=== PATIENT | female | born 1980 | race Two or more races ===

== ENCOUNTER 2019-01-25 16:29 | Outpatient (CLI) | payer MEDICAID ==
[2019-01-25 17:07] LABS: APPEARANCE,URINE CLEAR; BILIRUBIN,URINE NEGATIVE (NEGATIVE); COLOR,URINE YELLOW; GLUCOSE, URINE NEGATIVE (NEGATIVE); KETONES,URINE NEGATIVE (NEGATIVE); LEUKOCYTE ESTERASE,URINE NEGATIVE (NEGATIVE); NITRITE,URINE NEGATIVE (NEGATIVE); PROTEIN,URINE NEGATIVE (NEGATIVE); URINE SPECIFIC GRAVITY 1.009; UROBILINOGEN,URINE NEGATIVE mg/dL (<2.0)
[2019-01-25 17:31] LABS: URINE AMPHETAMINES SCREEN NEGATIVE; URINE BARBITURATES SCREEN NEGATIVE; URINE BENZODIAZEPINES SCREEN NEGATIVE; URINE COCAINE SCREEN NEGATIVE; URINE MARIJUANA (THC) SCREEN NEGATIVE; URINE METHADONE SCREEN NEGATIVE; URINE PHENCYCLIDINE SCREEN NEGATIVE
== END 2019-01-25 17:30 | disposition home or self-care (01) ==
LOC: LC 16:29
PROVIDERS: ATTEND Obstetrics & Gynecology
PROC: 4A1HXCZ Monitoring of Products of Conception, Cardiac Rate, External Approach (ICD-10-PCS; principal; 2019-01-25)
DX: Z34.93 Encounter for supervision of normal pregnancy, unspecified, third trimester (principal); Z3A.41 41 weeks gestation of pregnancy
CPT/HCPCS: 59025; 80307; 81005

== ENCOUNTER 2019-01-28 10:30 | Inpatient (IN) | payer MEDICAID ==
--- NOTE | 2019-01-28 10:42 | Non Stress Test Report ---
Non Stress Test Datetime Report Generated by CPN: 01/28/2019 10:42 DEMOGRAPHIC EGA NST: 41.0 INDICATION Indication for Study (NST) Other: repeat from [facility] VITAL SIGNS Temperature - NST: 98.0 Pulse - NST: 65 RESP - NST: 15 NBPSYS NST: 98 NBPDIA NST: 53 MONITORING Monitor Explained: Monitor Explained; Test Explained; Patient Verbalized Understanding Time on Monitor: 01/25/2019 16:50 Time off Monitor: 01/25/2019 17:21 NST Duration: 31 NST INTERVENTIONS NST Interventions: PO Hydration Physician Notified NST: A Stafford CNM BABY A: [id number] BABY A Movement : Present Contraction Frequency : rare FHR Baseline : 135 Accelerations : 15X15 Decelerations : None Variability : Moderate 6-25bpm NST Review: Meets Criteria for Reactive NST NST Review and Verified By : BL ROULUND, RN NST Results: Reactive NST COMMENTS NST Comments: CNM on unit reviewing FHT strip NST REPORT Report Trigger: Send Report
[2019-01-28] MEDS ORDERED: RINGERS SOLUTION,LACTATED 1,000 ML IV PRN ×2 (11:34→11:36)
[2019-01-28] MEDS ORDERED: OXYTOCIN/NORMAL SALINE 20 UNIT/1,000 ML RTUINJ IV PRN (11:34)
[2019-01-28] MEDS ORDERED: RINGERS SOLUTION,LACTATED 300 ML IV ONE (11:34)
[2019-01-28] MEDS ORDERED: RINGERS SOLUTION,LACTATED 1,000 ML IV ONE (11:36)
--- NOTE | 2019-01-28 11:38 | Admission Physical ---
Datetime Report Generated by CPN: 01/28/2019 11:38 CURRENT ADMISSION Hx Assessment: The History has been Reviewed and is Current Chief Complaint: Scheduled Induction of Labor Indication for Induction: Post Dates Admit Impression : Postterm, Intrauterine ; Active Labor; Intact Membranes; Induction of Labor Admit Plan: Admit to Unit; Initiate Labor Induction Protocol ALLERGIES Medication Allergies: No (Annotations: Data stored by [facility] on behalf of user) Medication Allergies: No Known Allergies (01/28/2019) Latex: No Latex Allergies OBSTETRICAL HISTORY EDC: 01/18/2019 00:00 : 7 Para: 6 Term: 6 : 0 SAB: 0 IAB: 0 Ectopic: 0 Livin Cesareans: 0 VBACs: 0 Multiple Births: 0 Gestational Diabetes: No Rh Sensitization: No Incompetent Cervix: No MARCIA: No Infertility: No ART Treatment: No Uterine Anomaly: No IUGR: No Hx Previous C/S: No Macrosomia: No Hx Loss/Stillborn: No PIH: No Hx : No Placenta Previa/Abruption: No Depression/PP Depression: No PTL/PROM: No Post Hemorrhage: No Current Procedures: Ultrasound; NST Obstetrical History Comments: G-1-BOY, 40 WEEKS G-2-BOY, 40 WEEKS G-3-BOY, 40 WEEKS G-4- GIRL, 40 WEEKS, SEVERAL UTI'S G-5- GIRL, 40 WEEKS G-6- BOY, 37 WEEKS G-7- CURRENT, 41+ WEEKS; AMA H/O PRECIPITOUS ; 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 [id number] MEDICAL HISTORY Diabetes: No Blood Transfusion: No Pulmonary Disease (Asthma, TB): No Breast Disease: No Hypertension: No Dispute Resolution Specialist Surgery: No Heart Disease: No Hosp/Surgery: Yes Autoimmune Disorder: No Anesthetic Complications: No Kidney Disease: Yes Abnormal Pap Smear: No Neuro/Epilepsy: No Psychiatric Disorders: No Other Medical Diseases: Yes Hepatitis/Liver Disease: No Significant Family History: No Varicosities/Phlebitis: No Trauma/Violence : No Thyroid Dysfunction: No Medical History Comments: H/O UTI'S CHILDBIRTH X 6 FIBROID, ANEMIA INFECTIOUS HISTORY Gonorrhea: No Genital Herpes: No Chlamydia: No Tuberculosis: No Syphilis: No Hepatitis: No HIV/AIDS Exposure: No Rash or Viral Illness: No HPV: No PHYSICAL EXAM General: Normal HEENT: Deferred Neurologic: Normal Thyroid: Normal Heart: Normal Lungs: Normal Breast: Deferred Back: Normal Abdomen: Normal Genitourinary Exam: Normal Extremities: Normal DTRs: Normal Pelvic Type: Adequate Physical Exam Comments: pelvis proven 7 pounds Anti E, weak titer at 36 weeks, Hsb + anti E GBS neg AMA Hx precipitous 06-25 uterine fibroid 06-25 FETUS A EGA: 41.3 Monitoring: External US Admit Comment: IOL for post dates 41.1, does not want amniotomy, Cat 1 strip, will start Pitocin PLANS FOR LABOR AND DELIVERY Labor and Delivery: Plan Pain Management: None Feeding Preference: Breast Benefit of Breast Feed Discussed: Yes Circumcision: Yes INFORMED CONSENT Assignment: Rosa Guardado MD Signature: with User ID: Miguel Ángel : with User ID: Miguel [email or web address]
[2019-01-28] MEDS ORDERED: MISOPROSTOL 0.2 MG TABLET ONE (11:54)
[2019-01-28] MEDS ORDERED: LIDOCAINE 1% INJ-PF (10 MG/ML) 30 ML SDV ONE (11:54)
[2019-01-28] MEDS ORDERED: OXYTOCIN 10 UNIT/ML VIAL ONE (11:54)
[2019-01-28] MEDS ORDERED: OXYTOCIN/NORMAL SALINE 20 UNIT/1,000 ML RTUINJ ONE (11:54)
[2019-01-28 13:01] LABS: ABSOLUTE EOSINOPHILS # (AUTO) 0.1 10^3/uL (0.0-0.6); ABSOLUTE LYMPHOCYTES (AUTO) 1.6 10^3/uL (0.5-4.7); ABSOLUTE MONOCYTES (AUTO) 0.9 10^3/uL (0.1-1.4); ABSOLUTE NEUT (AUTO) 5.9 10^3/uL (1.7-8.2); BASOPHILS % (AUTO) 0.4 % (0-2); EOSINOPHILS % (AUTO) 1.2 % (0-6); HEMATOCRIT 37.9 % (36.0-47.0); HEMOGLOBIN 12.6 g/dL (12.0-15.5); LYMPHOCYTES % (AUTO) 18.9 % (13-45); MEAN CORPUSCULAR HEMOGLOBIN 28.6 pg (27.0-33.4); MEAN CORPUSCULAR HGB CONC 33.3 g/dL (32.0-36.0); MEAN CORPUSCULAR VOLUME 86 fl (80-97); MONOCYTES % (AUTO) 10.3 % (3-13); PLATELET COUNT 283 10^3/uL (150-450); RED CELL DISTRIBUTION WIDTH 15.4 % (11.5-14.0); SEGMENTED NEUTROPHILS % (AUTO) 69.2 % (42-78); TOTAL CELLS COUNTED % (AUTO) 100 %; WHITE BLOOD COUNT 8.6 10^3/uL (4.0-10.5)
[2019-01-28 13:11] LABS: APPEARANCE,URINE CLEAR; BILIRUBIN,URINE NEGATIVE (NEGATIVE); COLOR,URINE STRAW; GLUCOSE, URINE NEGATIVE (NEGATIVE); KETONES,URINE NEGATIVE (NEGATIVE); LEUKOCYTE ESTERASE,URINE NEGATIVE (NEGATIVE); NITRITE,URINE NEGATIVE (NEGATIVE); PROTEIN,URINE NEGATIVE (NEGATIVE); URINE SPECIFIC GRAVITY 1.004; UROBILINOGEN,URINE NEGATIVE mg/dL (<2.0)
[2019-01-28 13:19] LABS: URINE AMPHETAMINES SCREEN NEGATIVE; URINE BARBITURATES SCREEN NEGATIVE; URINE BENZODIAZEPINES SCREEN NEGATIVE; URINE COCAINE SCREEN NEGATIVE; URINE MARIJUANA (THC) SCREEN NEGATIVE; URINE METHADONE SCREEN NEGATIVE; URINE PHENCYCLIDINE SCREEN NEGATIVE
--- NOTE | 2019-01-28 16:47 | Delivery Summary ---
Del Sum A-C Datetime Report Generated by CPN: 01/28/2019 16:47 DELIVERY PERSONNEL DELIVERY PERSONNEL: [id number] Delivery Doctor:: Rosa Guardado MD Labor and Delivery Nurse:: earlene de anda Nursery Nurse:: taina lisa Nursery Nurse:: marco valentine Vegetable Farm Manager/HEAVY FORGING MACHINE OPERATOR: carolyne Vegetable Farm Manager/HEAVY FORGING MACHINE OPERATOR: Felisha Esposito, ST MATERNAL INFORMATION Delivery Anesthesia: None Medications After Delivery: Pitocin Drip 20 Units/1000ml NSS Estimated Blood Loss (ml): 150 Delivery QBL: 150 Maternal Complications: None LABOR SUMMARY EDC: 01/18/2019 00:00 No. Babies in Womb: 1 Attempted: No LABOR INFORMATION Reason for Induction: Post Dates Onset of Labor: 01/28/2019 15:18 Complete Dilatation: 01/28/2019 15:42 Oxytocin: Induction Group B Beta Strep: NEGATIVE Steroids Given: None Reason Steroids Not Administered: Not Applicable MEMBRANES Membranes Rupture Method: Spontaneous Rupture of Membranes: 01/28/2019 15:18 Length of Rupture (hr): 0.43 Amniotic Fluid Color: Light Meconium Amniotic Fluid Amount: Moderate Amniotic Fluid Odor: Normal STAGES OF LABOR Stage 1 hr: 0 Stage 1 min: 24 Stage 2 hr: 0 Stage 2 min: 2 Stage 3 hr: 0 Stage 3 min: 4 Total Time in Labor hr: 0 Total Time in Labor min: 30 VAGINAL DELIVERY Episiotomy: None Laceration #1: None Laceration Extension #1: N/A Laceration Repair: Not Applicable Sharps Count Correct: Yes CSECTION DELIVERY Primary Indication: N/A Secondary Indication: N/A BABY A INFORMATION Delivery Date/Time: 01/28/2019 15:44 Method of Delivery: Vaginal Born in Route : No : N/A Forceps: N/A Vacuum Extraction: N/A Shoulder Dystocia : No PRESENTATION/POSITION BABY A Presentation: Cephalic Cephalic Presentation: Vertex Vertex Position: Right Occipital Anterior Breech Presentation: N/A PLACENTA INFORMATION BABY A Placenta Delivery Time : 01/28/2019 15:48 Placenta Method of Delivery: Spontaneous Placenta Status: Delivered SCORES BABY A Heart Rate 1 min: >100 bpm Resp Effort 1 min: Good Cry Reflex Irritability 1 min: Cough or Sneeze or Pulls Away Muscle Tone 1 min: Active Motion Color 1 min: Blue/Pale Resuscitation Effort 1 min: Tactile Stimulation SCORE 1 MIN: 8 Heart Rate 5 min: >100 bpm Resp Effort 5 min: Good Cry Reflex Irritability 5 min: Cough or Sneeze or Pulls Away Muscle Tone 5 min: Active Motion Color 5 min: Body [place], Extremities Blue Resuscitation Effort 5 min: Tactile Stimulation SCORE 5 MIN: 9 INFANT INFORMATION BABY A Gestational Age at Delivery: 41.0 Gestational Status: Late Term- 41- 41.6 Weeks Outcome : Liveborn Infant Condition : Stable Sex: Male IDENTIFICATION BABY A Verification Date/Time: 01/28/2019 16:19 ID Band Number: [id number] Mother's Name Verified: Yes Infant RN Verifying Infant: squinn Additional Verifying Personnel: [email or web address] WEIGHT/LENGTH BABY A Infant Birthweight (gm): 3649 Infant Weight (lb): 8 Infant Weight (oz): 1 Infant Length (in): 21.50 Length (cm): 54.61 CORD INFORMATION BABY A No. Cord Vessels: 3 Nuchal Cord : N/A Cord Blood Taken: Yes-For Storage (Mom's Blood type +) ASSESSMENT BABY A Skin to Skin: Yes (Annotations: Data stored by CPN on behalf of user) SIGNATURES Signature: with User ID: [email or web address]
[2019-01-28] MEDS ORDERED: DIBUCAINE 1% OINTMENT 56 GM TP PRN (17:04)
[2019-01-28] MEDS ORDERED: MEASLES,MUMPS&RUBELLA VACC/PF 0.5 ML VIAL SUBCUT PRN (17:04)
[2019-01-28] MEDS ORDERED: DIPH/PERTUSS(ACELL)/TETANUS VAC/PF 0.5 ML SYR (>=10YO) IM PRN (17:04)
[2019-01-28] MEDS ORDERED: ZOLPIDEM TARTRATE 5 MG TABLET PO PRN (17:04)
[2019-01-28] MEDS ORDERED: HYDROCODONE/ACETAMINOPHEN 5-325 MG TABLET PO PRN (17:04)
[2019-01-28] MEDS ORDERED: BENZOCAINE/MENTHOL AEROSOL SPRAY 56 ML TOP PRN (17:04)
[2019-01-28] MEDS: IBUPROFEN 800 MG TABLET PO SCH (21:32)
[2019-01-29] MEDS: IBUPROFEN 800 MG TABLET PO SCH ×3 (06:10→22:07)
[2019-01-29 06:19] LABS: HEMATOCRIT 32.7 % (36.0-47.0); HEMOGLOBIN 11.1 g/dL (12.0-15.5); MEAN CORPUSCULAR HGB CONC 33.9 g/dL (32.0-36.0); MEAN CORPUSCULAR VOLUME 86 fl (80-97); PLATELET COUNT 262 10^3/uL (150-450); RED BLOOD COUNT 3.82 10^6/uL (3.72-5.28); RED CELL DISTRIBUTION WIDTH 15.3 % (11.5-14.0); WHITE BLOOD COUNT 12.8 10^3/uL (4.0-10.5)
--- NOTE | 2019-01-29 08:51 | PDOC PROGRESS REPORT ---
Subjective-OB Progress Note for:: 01/29/19 Subjective: Doing well, holding baby, no c/o, voiding, ambulating Physical Exam (OB) Vital Signs: Temp Pulse Resp BP Pulse Ox 97.9 F 51 L 14 102/57 L 100 01/29/19 07:40 01/29/19 07:40 01/29/19 07:40 01/29/19 07:40 01/29/19 07:40 Intake & Output 01/28/19 01/29/19 01/30/19 06:59 06:59 06:59 Intake Total 200 Balance 200 Weight 65 kg - PIH/Pre-Eclampsia Headache: Absent Visual Changes: No - Lochia Lochia Amount: Small 10-25 ml Lochia Color: Rubra/Red - Abdomen Description: Soft Hernia Present: No Fundal Description: Firm, Midline Describe if Not Midline: large uterus Fundal Height: 1/u - 2/u Objective-Diagnostic Laboratory: 01/29/19 05:46 01/28/19 01/28/19 01/28/19 12:00 12:25 12:25 WBC 8.6 RBC 4.40 Hgb 12.6 Hct 37.9 MCV 86 MCH 28.6 MCHC 33.3 RDW 15.4 H Plt Count 283 Seg Neutrophils % 69.2 Urine Color STRAW Urine Appearance CLEAR Urine pH 6.0 Ur Specific [place] 1.004 Urine Protein NEGATIVE Urine Glucose (UA) NEGATIVE Urine Ketones NEGATIVE Urine Blood NEGATIVE Urine Nitrite NEGATIVE Ur Leukocyte Esterase NEGATIVE Blood Type A POSITIVE Antibody Screen POSITIVE 01/29/19 05:46 WBC 12.8 H RBC 3.82 Hgb 11.1 L Hct 32.7 L MCV 86 MCH 29.0 MCHC 33.9 RDW 15.3 H Plt Count 262 Seg Neutrophils % Urine Color Urine Appearance Urine pH Ur Specific [place] Urine Protein Urine Glucose (UA) Urine Ketones Urine Blood Urine Nitrite Ur Leukocyte Esterase Blood Type Antibody Screen Assessment and Plan(PN) - Assessment and Plan (1) Advanced maternal age (AMA) in Is this a current diagnosis for this admission?: Yes (2) Delivery normal Is this a current diagnosis for this admission?: Yes - Time Spent with Patient Time with patient: Less than 15 minutes Medications reviewed and adjusted accordingly: Yes - Disposition Anticipated Discharge: Home
[2019-01-29] MEDS: DOCUSATE SODIUM 100 MG CAPSULE PO SCH ×3 (09:29→18:35)
[2019-01-29] MEDS: FERROUS SULFATE 325 MG TABLET PO SCH ×3 (09:29→18:35)
[2019-01-29] MEDS: SENNOSIDES/DOCUSATE 8.6-50 MG 1 EACH TABLET PO SCH (10:39)
[2019-01-29] MEDS: PRENATAL VITAMIN W DHA CAPSULE PO SCH (10:39)
[2019-01-30] MEDS: IBUPROFEN 800 MG TABLET PO SCH ×2 (05:39→15:36)
[2019-01-30 08:06] VITALS: BP 97/55
--- NOTE | 2019-01-30 08:45 | PDOC PROGRESS REPORT ---
Subjective-OB Progress Note for:: 01/30/19 Subjective: Doing well, hsb at BS, ready to go hoe, , scant bleeding Physical Exam (OB) Vital Signs: Temp Pulse Resp BP Pulse Ox 97.9 F 56 L 16 97/55 L 100 01/30/19 07:47 01/30/19 07:47 01/30/19 07:47 01/30/19 07:47 01/30/19 07:47 Intake & Output 01/29/19 01/30/19 01/31/19 06:59 06:59 06:59 Intake Total 200 Balance 200 Weight 65 kg - PIH/Pre-Eclampsia Headache: Present Epigastric Pain: No Visual Changes: No - Lochia Lochia Amount: Scant < 10 ml Lochia Color: Rubra/Red - Abdomen Description: Soft Hernia Present: No Fundal Description: Firm, Midline Describe if Not Midline: large uterus Fundal Height: u/u - u/2 Objective-Diagnostic Laboratory: 01/29/19 05:46 Assessment and Plan(PN) - Assessment and Plan (1) Advanced maternal age (AMA) in Is this a current diagnosis for this admission?: Yes (2) Delivery normal Is this a current diagnosis for this admission?: Yes - Time Spent with Patient Time with patient: Less than 15 minutes Medications reviewed and adjusted accordingly: Yes - Disposition Anticipated Discharge: Home Within: within 24 hours
--- NOTE | 2019-01-30 08:51 | PDOC DISCHARGE SUMMARY ---
Impression - Admit/DC Date/PCP Admission Date/Primary Care Provider: 01/28/19 10:30 MARVIN MOSS MD Discharge Date: 01/30/19 - Discharge Diagnosis (1) Advanced maternal age (AMA) in Is this a current diagnosis for this admission?: Yes (2) Delivery normal Is this a current diagnosis for this admission?: Yes - Additional Information Discharge Diet: As Tolerated, Regular Discharge Activity: Activity As Tolerated, Pelvic Rest Referrals: MARVIN MOSS MD [Primary Care Provider] - ([facility] 4 weeks) Home Medications: Vits96/Iron Fum/Folic [ Tablet] 1 each PO DAILY 01/25/19 HPI Gestational Age: 41 Reason(s) for Admission: Induction of Labor, Advanced Maternal Age Procedures: NST, Ultrasound Intrapartum Procedure(s): Spontaneous Vaginal Delivery Hospital Course Hospital Course: routine Results Laboratory Results: WBC 12.8 10^3/uL (4.0-10.5) H 01/29/19 05:46 RBC 3.82 10^6/uL (3.72-5.28) 01/29/19 05:46 Hgb 11.1 g/dL (12.0-15.5) L 01/29/19 05:46 Hct 32.7 % (36.0-47.0) L 01/29/19 05:46 MCV 86 fl (80-97) 01/29/19 05:46 MCH 29.0 pg (27.0-33.4) 01/29/19 05:46 MCHC 33.9 g/dL (32.0-36.0) 01/29/19 05:46 RDW 15.3 % (11.5-14.0) H 01/29/19 05:46 Plt Count 262 10^3/uL (150-450) 01/29/19 05:46 Lymph % (Auto) 18.9 % (13-45) 01/28/19 12:25 [place] % (Auto) 10.3 % (3-13) 01/28/19 12:25 Eos % (Auto) 1.2 % (0-6) 01/28/19 12:25 Baso % (Auto) 0.4 % (0-2) 01/28/19 12:25 Absolute Neuts (auto) 5.9 10^3/uL (1.7-8.2) 01/28/19 12:25 Absolute Lymphs (auto) 1.6 10^3/uL (0.5-4.7) 01/28/19 12:25 Absolute Monos (auto) 0.9 10^3/uL (0.1-1.4) 01/28/19 12:25 Absolute Eos (auto) 0.1 10^3/uL (0.0-0.6) 01/28/19 12:25 Absolute Basos (auto) 0.0 10^3/uL (0.0-0.2) 01/28/19 12:25 Seg Neutrophils % 69.2 % (42-78) 01/28/19 12:25 Urine Color STRAW 01/28/19 12:00 Urine Appearance CLEAR 01/28/19 12:00 Urine pH 6.0 (5.0-9.0) 01/28/19 12:00 Ur Specific [place] 1.004 01/28/19 12:00 Urine Protein NEGATIVE mg/dL (NEGATIVE) 01/28/19 12:00 Urine Glucose (UA) NEGATIVE mg/dL (NEGATIVE) 01/28/19 12:00 Urine Ketones NEGATIVE mg/dL (NEGATIVE) 01/28/19 12:00 Urine Blood NEGATIVE (NEGATIVE) 01/28/19 12:00 Urine Nitrite NEGATIVE (NEGATIVE) 01/28/19 12:00 Urine Bilirubin NEGATIVE (NEGATIVE) 01/28/19 12:00 Urine Urobilinogen NEGATIVE mg/dL (<2.0) 01/28/19 12:00 Ur Leukocyte Esterase NEGATIVE (NEGATIVE) 01/28/19 12:00 Urine Ascorbic Acid NEGATIVE (NEGATIVE) 01/28/19 12:00 Urine Opiates Screen NEGATIVE 01/28/19 12:00 Urine Methadone Screen NEGATIVE 01/28/19 12:00 Ur Barbiturates Screen NEGATIVE 01/28/19 12:00 Ur Phencyclidine Scrn NEGATIVE 01/28/19 12:00 Ur Amphetamines Screen NEGATIVE 01/28/19 12:00 U Benzodiazepines Scrn NEGATIVE 01/28/19 12:00 Urine Cocaine Screen NEGATIVE 01/28/19 12:00 U Marijuana (THC) Screen NEGATIVE 01/28/19 12:00 Blood Type A POSITIVE 01/28/19 12:25 Antibody Screen POSITIVE 01/28/19 12:25 Antibody Identification Anti-E 01/28/19 12:25 Antigen Identification E Antigen - NEGATIVE 01/28/19 12:25 Plan Health Concerns: routine Plan of Treatment: normal pp care Goals: routine care Time Spent: Less than 30 Minutes
[2019-01-30] MEDS: DOCUSATE SODIUM 100 MG CAPSULE PO SCH (09:56)
[2019-01-30] MEDS: SENNOSIDES/DOCUSATE 8.6-50 MG 1 EACH TABLET PO SCH (09:56)
[2019-01-30] MEDS: FERROUS SULFATE 325 MG TABLET PO SCH (09:56)
[2019-01-30] MEDS: PRENATAL VITAMIN W DHA CAPSULE PO SCH (10:24)
== END 2019-01-30 18:29 | disposition home or self-care (01) | DRG 807 ==
LOC: LR 10:30 → 2S 18:12
PROVIDERS: ADMIT Obstetrics & Gynecology; ATTEND Obstetrics & Gynecology
PROC: 10E0XZZ Delivery of Products of Conception, External Approach (ICD-10-PCS; principal; 2019-01-28)
DX: O48.0 Post-term pregnancy (principal); O77.0 Labor and delivery complicated by meconium in amniotic fluid; Z3A.40 40 weeks gestation of pregnancy; Z37.0 Single live birth
CPT/HCPCS: 36415; 80307; 81005; 85025; 85027; 86592; 86850; 86870; 86900; 86901; 86902; J2590; J3490

== ENCOUNTER → 2020-02-10 | Outpatient (CLI) | payer MEDICAID ==
--- NOTE | 2020-02-10 12:22 | RADIOLOGY REPORT (SQ) ---
EXAM DESCRIPTION: CERV SP 4 OR 5 VIEWS IMAGES COMPLETED DATE/TIME: 02/10/2020 10:12 am REASON FOR STUDY: (M54.2)CERVICALGIA M54.2 CERVICALGIA COMPARISON: None. NUMBER OF VIEWS: Five views. TECHNIQUE: AP, lateral, obliques and odontoid radiographic images acquired of the cervical spine. LIMITATIONS: None. FINDINGS: MINERALIZATION: Normal. ALIGNMENT: Anatomic. VERTEBRAE: Vertebral bodies of normal height. DISCS: There is mild disc narrowing at C5-6 with small marginal osteophytes. FORAMINA: No osteophytes or foraminal narrowing. LATERAL AND POSTERIOR ELEMENTS: Facets, lateral masses and spinous processes without significant find ings. HARDWARE: None in the spine. SOFT TISSUES: No masses or calcifications. Lung apices clear. OTHER: No other significant finding. IMPRESSION: Mild degenerative disc disease and spondylosis. TECHNICAL DOCUMENTATION: JOB ID: [id number] 2010 [employer]- All Rights Reserved Reading location - IP/workstation name: [email or web address]
== END ==
LOC: RAD 09:48
PROVIDERS: ATTEND Nurse Practitioner Family
DX: M50.322 Other cervical disc degeneration at C5-C6 level (principal); M47.812 Spondylosis without myelopathy or radiculopathy, cervical region
CPT/HCPCS: 72050